=== PATIENT | female | born 1960 | race Caucasian/White ===

== ENCOUNTER → 2020-11-20 | Outpatient (CLI) | payer BC | LOC: NM 09:55 | DX: R79.82 Elevated C-reactive protein (CRP) (principal) | CPT/HCPCS: 78306; A9503 ==

== ENCOUNTER → 2020-12-30 | Outpatient (CLI) | payer BC | LOC: KOH-I 13:45 | DX: M51.26 Other intervertebral disc displacement, lumbar region (principal); M48.062 Spinal stenosis, lumbar region with neurogenic claudication; M47.816 Spondylosis without myelopathy or radiculopathy, lumbar region | CPT/HCPCS: 72148 ==